=== PATIENT | male | born 1955 | race Two or more races ===

== ENCOUNTER 2025-04-11 12:03 | Inpatient (IN) | payer OTHER ==
[~2025-04-11] VITALS: Ht 188 cm; Wt 96.3 kg
[2025-04-11 12:29] VITALS: PULSE 57; RESP 9; O2SAT 100
--- NOTE | 2025-04-11 12:29 | ED.PDOC ---
HPI Comments This is a 69 year-old male who presents to the ED via EMS with a chief complaint of chest pain as of 1100 this morning. Pt [id number] he was outside doing yard work when chest pain spontaneously begun. Pt reports chest pain as intermittent, with no associated relieving factors. Per EMS, pt was diaphoretic and cool to the touch on scene. Pt was given 4MG Zofran and 324mg Aspirin en route. Per EMS, patients vitals read 110/60 and 98 systolic. Patient has no further complaints at this time and otherwise denies cough, palpitations, N/V/D, fever, chills, weakness, or slurred speech. Chief Complaint: Chest Pain Time Seen by MD: 12:16 Reviewed Notes: Car Varnisher Notes, Medications, Allergies Allergies: Coded Allergies: NO KNOWN ALLERGIES (Unverified , 04/11/25) Information Source: Patient, Emergency Med Personnel Mode of Arrival: EMS Severity: Moderate Timing: Minutes Duration: Since onset Prehospital treatment: None Radiation: No Radiation Associated Signs and Symptoms: Other (chest pain ) Past Medical History PAST MEDICAL HISTORY: Denies Surgical History: Denies all surgeries Family History Family History: Reviewed,noncontributory to illness, No family hx of Cancer, No family hx of DM, No family hx of Heart daniel, No family hx of HTN, No family hx ofKidney daniel, No family hx of Liver daneil, No family hx of Lung daniel, No family hx of Stroke Social History Smoker: Non-Smoker Alcohol: Denies ETOH Use Drugs: Denies Drug Use Lives In: Home Constitutional: denies: chills, diaphoresis, fatigue, fever, malaise, sweats, weakness, others EENTM: denies: blurred vision, double vision, ear bleeding, ear discharge, ear drainage, ear pain, ear ringing, eye pain, eye redness, hearing loss, mouth pain, mouth swelling, nasal discharge, nose bleeding, nose congestion, nose pain, photophobia, tearing, throat pain, throat swelling, voice changes, others Respiratory: denies: cough, hemoptysis, orthopnea, SOB at rest, shortness of breath, SOB with excertion, stridor, wheezing, others Cardiovascular: reports: chest pain; denies: dizzy spells, diaphoresis, Dyspnea on exertion, edema, irregular heart beat, left arm pain, lightheadedness, palpitations, PND, syncope, others Gastrointestinal: denies: abdomen distended, abdominal pain, blood streaked bowels, constipated, diarrhea, dysphagia, difficulty swallowing, hematemesis, melena, nausea, poor appetite, poor fluid intake, rectal bleeding, rectal pain, vomiting, others Genitourinary: denies: burning, dysuria, flank pain, frequency, hematuria, incontinence, penile discharge, penile sore, pain, testicle pain, testicle swelling, urgency, others Neurological: denies: dizziness, fainting, headache, left sided numbness, left sided weakness, numbness, paresthesia, pre-existing deficit, right sided numbness, right sided weakness, seizure, speech problems, tingling, tremors, weakness, others Musculoskeletal: denies: back pain, gout, joint pain, joint swelling, muscle pain, muscle stiffness, neck pain, others Integumetry: denies: bruises, change in color, change in hair/nails, dryness, laceration, lesions, lumps, rash, wounds, others Allergic/Immunocompromised: denies: Difficulty Healing, Frequent Infections, Hives, Itching, others Hematologic/Lymphatic: denies: anemia, blood clots, easy bleeding, easy bruising, swollen glands, others Endocrine: denies: excessive hunger, excessive sweating, excessive thirst, excessive urination, flushing, intolerance to cold, intolerance to heat, unexplained weight gain, unexplained weight loss, others Psychiatric: denies: anxiety, bipolar disorder, depression, hopeless, panic disorder, schizophrenia, sleepless, suicidal, others All Other Systems: Reviewed and Negative Physical Exam General Appearance: Moderate Distress HEENT: Normal ENT Inspection, Pharynx Normal, TMs Normal Neck: Full Range of Motion, Non-Tender, Normal, Normal Inspection Respiratory: Chest Non-Tender, Lungs Clear, No Accessory Muscle Use, No Respiratory Distress, Normal Breath Sounds Cardiovascular: No Edema, No JVD, No Murmur, No Gallop, Normal Peripheral Pulses, Regular Rate/Rhythm Breast Exam: Deferred Gastrointestinal: No Organomegaly, Non Tender, No Pulsatile Mass, Normal Bowel Sounds, Soft Genitalia: Deferred Pelvic: Deferred Rectal: Deferred Extremities: No calf tenderness, Normal inspection, Normal range of motion, No pedal edema Musculoskeletal : Apperance: Normal Neurologic: Alert, No Motor Deficits, No Sensory Deficits Cerebellar Function: NOT DONE Reflexes: NOT DONE Skin: Dry, Normal Color, Warm Peripheral Pulses: 3+ Radial (R), 3+ Radial (L) Lymphatic: No Adenopathy EKG EKG : Pulse Rate (adult): 48 [place]: Normal Cardiac Rhythm: SB Block: None Hypertrophy: None ST: Normal Was a procedure done? Was a procedure done?: No CP Differential Dx Differential Diagnosis: A-fib, A-Flutter, Angina, Anxiety / Panic Attack, Atrial Dysrhythmia, Electrolyte Disorder, V-Tach Differential Diagnosis: HTN Essential Differential Diagnosis: Angina, Chest Wall Pain X-Ray, Labs, Meds, VS Vital Signs Date Time Temp Pulse Resp B/P (MAP) Pulse Ox O2 Delivery O2 Flow Rate FiO2 04/11/25 12:41 57 18 107/59 04/11/25 12:29 57 9 100 Room Air* 0 21 04/11/25 12:29 57 10 107/59 (75) 100 04/11/25 12:29 70 04/11/25 12:07 57 04/11/25 12:03 97.7 56 20 110/60 95 97.7 Lab Test 04/11/25 13:00 04/11/25 12:20 Range/Units Troponin I High Sensitivity 5 3 L </=54 ng/L White Blood Count 3.5 L 4.4-10.8 10^3/uL Red Blood Count 4.02 L 4.5-5.90 10^6/uL Hemoglobin 12.2 L 13.5-17.5 g/dL Hematocrit 35.4 L 41.0-53.0 % Mean Corpuscular Volume 88.1 80.0-100.0 fL Mean Corpuscular Hemoglobin 30.3 28.0-32.0 pg Mean Corpuscular Hemoglobin Concent 34.4 32.0-36.0 g/dL Red Cell Distribution Width 17.5 H 11.8-14.3 % Platelet Count 146 140-450 10^3/uL Mean Platelet Volume 7.8 6.9-10.8 fL Neutrophils (%) (Auto) 52.6 37.0-80.0 % Lymphocytes (%) (Auto) 34.4 10.0-50.0 % Monocytes (%) (Auto) 10.5 0.0-12.0 % Eosinophils (%) (Auto) 2.2 0.0-7.0 % Basophils (%) (Auto) 0.3 0.0-2.0 % Neutrophils # (Auto) 1.9 1.6-8.6 10 ^3/uL Lymphocytes # (Auto) 1.2 0.4-5.4 10 ^3/uL Monocytes # (Auto) 0.4 0-1.3 10 ^3/uL Eosinophils # (Auto) 0.1 0-0.8 10 ^3/uL Basophils # (Auto) 0 0-0.2 10 ^3/uL Nucleated Red Blood Cells 0.0 % Sodium Level 140 136-145 mmol/L Potassium Level 3.9 3.5-5.1 mmol/L Chloride Level 107 98-107 mmol/L Carbon Dioxide Level 23 20-31 mmol/L Anion Gap 10 5-15 Blood Urea Nitrogen 11 9-23 mg/dL Creatinine 1.36 H 0.700-1.30 mg/dL Glomerular Filtration Rate Calc 56 >90 mL/min BUN/Creatinine Ratio 8.1 L 10.0-20.0 Serum Glucose 151 H 74-106 mg/dL Calcium Level 9.1 8.7-10.4 mg/dL Current Medications Medications (Trade) Dose Ordered Sig/Linda Route Start Time Stop Time Status Last Admin Aspirin 325 mg ONCE ONCE PO 04/11/25 12:30 04/11/25 12:31 DC 04/11/25 12:42 Morphine Sulfate 4 mg ONCE ONCE IV 04/11/25 12:30 04/11/25 12:31 DC 04/11/25 12:41 Ondansetron HCl (Zofran) 4 mg ONCE ONCE IV 04/11/25 12:30 04/11/25 12:31 DC 04/11/25 12:42 [place] [id number] Ph: [phone] DIAGNOSTIC IMAGING Diagnostic Imaging Report : [id number] Signed PATIENT: NATACHA RUSHING ACCT: [id number] UNIT: [id number] : 1955 LOC: ER ROOM / BED: / AGE / SEX: 69 / M ADM STATUS: REG ER SERVICE 1222 ORDERING PHYSICIAN: TILA WHEAT MD PROCEDURE(s): CXRP - CHEST PORTABLE REASON: sob ORDER NUMBER(s): [id number], ACCESSION NUMBER(s): [id number] EXAM: XY CHEST PORTABLE HISTORY: sob TECHNIQUE: 1 view of the chest COMPARISON: None FINDINGS/IMPRESSION: LUNGS: No pleural effusion, consolidation, or pneumothorax MEDIASTINUM: Unremarkable BONES: No acute osseous abnormality OTHER: None Patient alert. Complaining of chest pain. Vitals stable. Answering questions. Continues to have chest pain. Was given aspirin. Was given nitro. Was given morphine. Was given Zofran. EKG reviewed does not show any acute changes. Echocardiogram. Cardiology consultation. Unstable for transfer. Continue monitoring. Approved inpatient admission [id number]. Images Reviewed?: Images reviewed and evaluated by me Time of 1ST Reevaluation: 12:57 Reevaluation 1ST: Unchanged Patient Education/Counseling: Diagnosis, Treatment Family Education/Counseling: No Family Present Medical Screening: No EMC Exist At This Time SEPSIS Sepsis Screen Date sepsis recognized/suspect: Apr 11, 2025 Time Sepsis recognized/suspect: 1201 Recent Procedure: No On Antibiotic Therapy: No Respiratory Rate >20: No Heart Rate >90: No Temp<36 C (96.8 F) or >38.3 C: No SBP <90 or MAP <65 mmHG: No New Acute Mental Status Change: No Is the patient on CPAP, BIPAP,: No Physician Orders Chest Portable (04/11/25 12:22) Urinalysis (04/11/25 12:22) Troponin-I Hs (04/11/25 15:22) Electrocardigram (04/11/25 12:46) Electrocardigram (04/11/25 13:46) Electrocardigram (04/11/25 15:46) Vital Signs Date Time Temp Pulse Resp B/P (MAP) Pulse Ox O2 Delivery O2 Flow Rate FiO2 04/11/25 12:41 57 18 107/59 04/11/25 12:29 57 9 100 Room Air* 0 21 04/11/25 12:29 57 10 107/59 (75) 100 04/11/25 12:29 70 04/11/25 12:07 57 04/11/25 12:03 97.7 56 20 110/60 95 97.7 Laboratory Tests Test 04/11/25 12:20 White Blood Count 3.5 10^3/uL (4.4-10.8) L Medications Medications Dose Ordered Sig/Linda Route Start Time Stop Time Status Last Admin Dose Admin Aspirin 325 mg ONCE ONCE PO 04/11/25 12:30 04/11/25 12:31 DC 04/11/25 12:42 Morphine Sulfate 4 mg ONCE ONCE IV 04/11/25 12:30 04/11/25 12:31 DC 04/11/25 12:41 Ondansetron HCl 4 mg ONCE ONCE IV 04/11/25 12:30 04/11/25 12:31 DC 04/11/25 12:42 Departure 1 Departure Time of Disposition: 12:30 Impression: Primary Impression: Chest pain of unknown etiology Disposition: ADMITTED INPATIENT Admit to: Med Surg Condition: Guarded Critical Care Note Critical Care Time?: No Stability Stability form required: No Heart Score Heart Score: Heart Score Response (Comments) Value History Slightly Suspicious 0 EKG Normal 0 Age >65 2 Risk Factors No known risk factors 0 Troponin Normal limit 0 Total 2 I personally scribed for TILA WHEAT MD ([email or web address]) on 04/11/25 at 12:29. Electronically submitted by Leticia Tavarez ([employer] I personally scribed for TILA WHEAT MD ([email or web address]) on 04/11/25 at 13:47. Electronically submitted by Leticia Tavarez ([employer] I personally scribed for TILA WHEAT MD ([email or web address]) on 04/11/25 at 13:56. Electronically submitted by Leticia Tavarez ([employer] TILA WHEAT MD Apr 11, 2025 12:29
[2025-04-11] MEDS: MORPHINE SULFATE 4 MG/ML SYR/VIAL IV ONE (12:41)
[2025-04-11] MEDS: ONDANSETRON HCL 4 MG/2 ML VIAL IV ONE ×2 (12:42→18:54)
[2025-04-11 12:44] LABS: Chloride 107 mmol/L (98-107); Potassium 3.9 mmol/L (3.5-5.1); Sodium 140 mmol/L (136-145)
[2025-04-11 12:45] LABS: Anion Gap 10 (5-15); Calcium 9.1 mg/dL (8.7-10.4); Carbon Dioxide 23 mmol/L (20-31)
[2025-04-11 12:50] LABS: BUN/Creatinine Ratio 8.1 (10.0-20.0); Blood Urea Nitrogen 11 mg/dL (9-23)
[2025-04-11 12:51] LABS: Hematocrit 35.4 % (41.0-53.0); Hemoglobin 12.2 g/dL (13.5-17.5); Mean Corpuscular Hemoglobin 30.3 pg (28.0-32.0); Mean Corpuscular Volume 88.1 fL (80.0-100.0); Nucleated Red Blood Cells % 0.0 %
--- NOTE | 2025-04-11 13:19 | DVH ---
EXAM: XY CHEST PORTABLE HISTORY: sob TECHNIQUE: 1 view of the chest COMPARISON: None FINDINGS/IMPRESSION: LUNGS: No pleural effusion, consolidation, or pneumothorax MEDIASTINUM: Unremarkable BONES: No acute osseous abnormality OTHER: None
[2025-04-11 13:21] LABS: Glucose 151 mg/dL (74-106)
--- NOTE | 2025-04-11 15:17 | ECG ---
[facility] Test Date: 2025-04-11 Test Time: 12:05:26 Pat Name: NATACHA SAN Department: Room: 0217T Gender: M Manager Of Tax: SHANTE : 1955 Requested By: TILA WHEAT Order Number: [id number] Reading MD: Aaron Yadav Measurements Intervals [place] Rate: 57 P: 83 MO: 180 QRS: 86 QRSD: 103 T: 92 QT: 425 QTc: 414 Interpretive Statements Sinus rhythm Consider right ventricular hypertrophy Nonspecific T abnormalities, lateral leads ST elevation, consider inferior injury Electronically Signed On 04-15-2025 9:30:54 PDT by Aaron Yadav Please click the below link to view image of tracing.
--- NOTE | 2025-04-11 15:18 | ECG ---
[facility] Test Date: 2025-04-11 Test Time: 15:00:38 Pat Name: NATACHA SAN Department: Room: 0217T Gender: M Inspector Salvage: SHANTE : 1955 Requested By: TILA WHEAT Order Number: [id number] Reading MD: Aaron Yadav Measurements Intervals [place] Rate: 48 P: 76 [place]: 176 QRS: 69 QRSD: 106 T: 102 QT: 467 QTc: 418 Interpretive Statements Sinus bradycardia Consider right ventricular hypertrophy Nonspecific T abnormalities, lateral leads ST elevation, consider inferior injury Electronically Signed On 04-15-2025 9:32:49 PDT by Aaron Yadav Please click the below link to view image of tracing.
[2025-04-11] MEDS: NITROGLYCERIN 0.4 MG SL TAB SL ONE (15:30)
[2025-04-11] MEDS: SODIUM CHLORIDE 0.9% 1,000 ML IV ONE (17:34)
[2025-04-11] MEDS: ONDANSETRON HCL 4 MG/2 ML VIAL ONE (18:54)
[2025-04-11] MEDS ORDERED: ACETAMINOPHEN 325 MG TAB PO PRN (19:45)
[2025-04-11] MEDS ORDERED: DOCUSATE SOD 100 MG CAP PO PRN (19:45)
[2025-04-11 19:56] VITALS: PULSE 51; RESP 11; O2SAT 99
[2025-04-11] MEDS: SODIUM CHLOR 0.9% PF (SALINE LOCK) 10ML VIAL/SYR IV SCH (21:21)
--- NOTE | 2025-04-11 21:42 | DVHHP2 ---
History of Present Illness Reason for Visit: Chest pain of unknown etiology History of Present Illness The patient is a 69-year-old male who denies past medical history presented to [facility] ED with complaint of chest pain. Patient [id number] he was outside doing yard work when chest pain spontaneously begun. Patient states chest pain as intermittent, diaphoretic, with no associated relieving factors. Patient was seen and evaluated in the ED, laboratory data shows WBC 3.5, hemoglobin 12.2, hematocrit 35.4, platelets 146, sodium 140, potassium 3.9, BUN 11, creatinine 1.36, glucose 151, hemoglobin A1c 5.6, calcium 9.1, troponin 97, blood pressure 90/52, heart rate 45, temperature 98.2 F, O2 saturation 99% room air. Chest x-ray shows no acute osseous abnormality. Please see medication orders section in the computer. On my assessment, patient denied chest pain at this moment, no headache, no dizziness, no shortness of breaths, no diarrhea, no nausea, no vomiting, no fever, no chills. Patient was admitted for further evaluation and medical management. Past Medical History Denies past medical history Past Surgical History Denies all surgeries Family History Reviewed, noncontributory to the management of this case. Past Social History The patient lives at home, denies smoking, alcohol or illicit drugs abuse. Review of Systems Constitutional: No: Fever, Chills, Sweats, Weakness, Malaise, Other Eyes: No: Pain, Vision change, Conjunctivae inflammation, Eyelid inflammation, Other, Redness ENT: No: Ear pain, Ear discharge, Nose pain, Nose discharge, Nose congestion, Mouth pain, Mouth swelling, Throat pain, Throat swelling, Other Respiratory: No: Cough, Dry, Shortness of breath, SOB with excertion, Wheezing, Hemoptysis, Pleuritic Pain, Sputum, Wheezing, Other Cardiovascular: Chest Pain, Other (Bradycardia); No: Palpitations, Orthopnea, Paroxysmal Noc. Dyspnea, Edema, Lt Headedness Gastrointestinal: No: Nausea, Vomiting, Abdominal Pain, Diarrhea, Constipation, Melena, Hematochezia, Other Genitourinary: No Dysuria, No Frequency, No Incontinence, No Hematuria, No Retention, No Other Musculoskeletal: No: other, neck pain, shoulder pain, arm pain, back pain, hand pain, leg pain, foot pain Skin: No: Rash, Lesions, Jaundice, Bruising, Other Neurological: No: Weakness, Numbness, Incoordination, Change in speech, Confusion, Seizures, Other Allergies: Coded Allergies: NO KNOWN ALLERGIES (Unverified , 04/11/25) Medications Current Medications Medications Dose Ordered Sig/Linda Route Start Time Stop Time Status Last Admin Dose Admin Aspirin 81 mg DAILY PO 04/12/25 10:00 Sodium Chloride 10 ml Q8HR IV 04/11/25 22:00 04/11/25 21:21 10 ML Acetaminophen/ Hydrocodone Bitart 1 tab Q4HP PRN PO 04/11/25 19:45 Ondansetron HCl 4 mg Q4HP PRN IV 04/11/25 19:45 Docusate Sodium 100 mg BIDPRN PRN PO 04/11/25 19:45 Acetaminophen 650 mg Q6HP PRN PO 04/11/25 19:45 Exam Vital Signs Vital Signs Date Time Temp Pulse Resp B/P (MAP) Pulse Ox O2 Delivery O2 Flow Rate FiO2 04/11/25 19:56 98.1 51 11 111/49 (69) 99 98.1 04/11/25 19:56 Room Air* 0 21 General Appearance: Alert, Oriented X3, Cooperative, No acute distress HEENT: Atraumatic, PERRLA, EOMI, Mucous membr. moist/pink Respiratory: Normal air movement Cardiovascular: Normal S1, Normal S2, No murmurs, Other (Irregular rate bradycardia) Abdominal: Normal bowel sounds, Soft, No tenderness, No hepatospenomegaly, No masses Extremities: No clubbing, No cyanosis, No edema, Normal pulses, No tenderness/swelling Skin: No rashes, No significant lesion Neuro: Normal speech, Normal tone, Sensation intact, Cranial nerves 3-12 NL, Reflexes 2+, Other (Generalized weakness) Psych/Mental Status: Mental status NL, Mood NL Labs/Xrays Labs Test 04/11/25 15:09 04/11/25 12:20 Range/Units Troponin I High Sensitivity 97 *H </=54 ng/L White Blood Count 3.5 L 4.4-10.8 10^3/uL Red Blood Count 4.02 L 4.5-5.90 10^6/uL Hemoglobin 12.2 L 13.5-17.5 g/dL Hematocrit 35.4 L 41.0-53.0 % Mean Corpuscular Volume 88.1 80.0-100.0 fL Mean Corpuscular Hemoglobin 30.3 28.0-32.0 pg Mean Corpuscular Hemoglobin Concent 34.4 32.0-36.0 g/dL Red Cell Distribution Width 17.5 H 11.8-14.3 % Platelet Count 146 140-450 10^3/uL Mean Platelet Volume 7.8 6.9-10.8 fL Neutrophils (%) (Auto) 52.6 37.0-80.0 % Lymphocytes (%) (Auto) 34.4 10.0-50.0 % Monocytes (%) (Auto) 10.5 0.0-12.0 % Eosinophils (%) (Auto) 2.2 0.0-7.0 % Basophils (%) (Auto) 0.3 0.0-2.0 % Neutrophils # (Auto) 1.9 1.6-8.6 10 ^3/uL Lymphocytes # (Auto) 1.2 0.4-5.4 10 ^3/uL Monocytes # (Auto) 0.4 0-1.3 10 ^3/uL Eosinophils # (Auto) 0.1 0-0.8 10 ^3/uL Basophils # (Auto) 0 0-0.2 10 ^3/uL Nucleated Red Blood Cells 0.0 % Sodium Level 140 136-145 mmol/L Potassium Level 3.9 3.5-5.1 mmol/L Chloride Level 107 98-107 mmol/L Carbon Dioxide Level 23 20-31 mmol/L Anion Gap 10 5-15 Blood Urea Nitrogen 11 9-23 mg/dL Creatinine 1.36 H 0.700-1.30 mg/dL Glomerular Filtration Rate Calc 56 >90 mL/min BUN/Creatinine Ratio 8.1 L 10.0-20.0 Serum Glucose 151 H 74-106 mg/dL Hemoglobin A1c 5.6 <5.7 % A1C Calcium Level 9.1 8.7-10.4 mg/dL PATIENT: NATACHA RUSHING ACCT: [id number] UNIT: [id number] : 1955 LOC: ER ROOM / BED: / AGE / SEX: 69 / M ADM STATUS: REG ER SERVICE 1222 ORDERING PHYSICIAN: TILA WHEAT MD PROCEDURE(s): CXRP - CHEST PORTABLE REASON: sob ORDER NUMBER(s): [id number], ACCESSION NUMBER(s): [id number] EXAM: XY CHEST PORTABLE HISTORY: sob TECHNIQUE: 1 view of the chest COMPARISON: None FINDINGS/IMPRESSION: LUNGS: No pleural effusion, consolidation, or pneumothorax MEDIASTINUM: Unremarkable BONES: No acute osseous abnormality OTHER: None SEPSIS Sepsis Screen Date sepsis recognized/suspect: Apr 11, 2025 Time Sepsis recognized/suspect: 2000 Recent Procedure: No On Antibiotic Therapy: No Respiratory Rate >20: No Heart Rate >90: No Temp<36 C (96.8 F) or >38.3 C: No SBP <90 or MAP <65 mmHG: No New Acute Mental Status Change: No Is the patient on CPAP, BIPAP,: No Physician Orders * Cardiology Consult (04/11/25 16:27) Aspirin Tablet (04/12/25 10:00) Allergies (04/11/25 19:38) Code Status (04/11/25 19:38) Sodium Chloride Lock (Saline Lock Ns) (04/11/25 22:00) Oxygen Per Hour (04/11/25 19:38) Hydrocodone-Acet 5/325mg Tab (Bruce 5/32 (04/11/25 19:45) Ondansetron Hcl (Zofran) (04/11/25 19:45) Docusate Sodium Capsule (Colace Capsule) (04/11/25 19:45) Complete Blood Count (04/12/25 04:00) Comprehensive Metabolic Panel (04/12/25 04:00) Cardiac Diet-2gna,Lofat,Lochol (04/12/25 Breakfast) Condition: Serious (04/11/25 19:38) Acetaminophen Tablet (Tylenol Tablet) (04/11/25 19:45) Bedrest With Bathroom Privileg (04/11/25 19:38) Maintain Bed Rest (04/11/25 19:38) Sequential Compression Device (04/11/25 ) Admit (04/11/25 21:41) Nitroglycerin Sublingual (Ntrostat Subli (04/11/25 21:45) Morphine Sulfate Injection (04/11/25 21:45) Stat Ekg For Chest Pain (04/11/25 21:41) Notify Md Of Changes From Base (04/11/25 21:41) Pigment Furnace Tender For 24 Hours (04/11/25 21:41) Emergency Dysrhythmia Protocol (04/11/25 21:41) Rhythm Strips Once Every Shift (04/11/25 21:41) Oxygen By Nasal Cannula (04/11/25 21:41) Vital Signs Date Time Temp Pulse Resp B/P (MAP) Pulse Ox O2 Delivery O2 Flow Rate FiO2 04/11/25 19:56 98.1 51 11 111/49 (69) 99 98.1 04/11/25 19:56 51 11 99 Room Air* 0 21 04/11/25 17:31 91/51 04/11/25 16:31 106/75 04/11/25 16:00 45 8 103/53 (70) 100 04/11/25 15:03 48 04/11/25 14:00 98.2 45 7 99/56 (70) 100 98.2 04/11/25 14:00 45 18 99/56 04/11/25 13:47 48 Laboratory Tests Test 04/11/25 12:20 White Blood Count 3.5 10^3/uL (4.4-10.8) L Medications Medications Dose Ordered Sig/Linda Route Start Time Stop Time Status Last Admin Dose Admin Aspirin 325 mg ONCE ONCE PO 04/11/25 12:30 04/11/25 12:31 DC 04/11/25 12:42 325 MG Morphine Sulfate 4 mg ONCE ONCE IV 04/11/25 12:30 04/11/25 12:31 DC 04/11/25 12:41 4 MG Nitroglycerin 0.4 mg ONCE ONCE SL 04/11/25 12:30 04/11/25 12:31 DC 04/11/25 16:31 0.4 MG Ondansetron HCl 4 mg ONCE ONCE IV 04/11/25 12:30 04/11/25 12:31 DC 04/11/25 12:42 4 MG Ondansetron HCl 4 mg ONCE ONCE IV 04/11/25 18:45 04/11/25 18:46 DC 04/11/25 18:54 4 MG Sodium Chloride 10 ml Q8HR IV 04/11/25 22:00 04/11/25 21:21 10 ML Sodium Chloride 1,000 ml @ 1,000 mls/hr Q1H ONCE IV 04/11/25 17:15 04/11/25 18:14 DC 04/11/25 17:34 1,000 MLS/HR Assessment/Plan Assessment/Plan Chest pain of unknown etiology Bradycardia Elevated troponin Hyperglycemia Generalized weakness Plan 1. Admit to telemetry unit 2. Breathing treatment 3. Pain control management 4. Management of fluids and electrolytes 5. Consultation for Cardiology 6. Diagnostic tests chest x-ray 7. DVT prophylaxis-on aspirin 8. Repeat labs CBC, CMP in a.m. 9. Continue with current medical management 10. Treatment plan discussed with patient and RN. Patient verbalized understanding. Plan discussed with: Patient, Other (RN) My Orders Orders - SLY KARIMI DNP Procedure Category Date Status Time Aspirin Tablet PHA 04/12/25 In Process 10:00 Allergies MATTHEW 04/11/25 In Process 19:38 Code Status CODE 04/11/25 Transmitted 19:38 Sodium Chloride Lock PHA 04/11/25 In Process (Saline Lock Ns) 22:00 Oxygen Per Hour RT 04/11/25 Transmitted 19:38 Hydrocodone-Acet PHA 04/11/25 In Process 5/325mg Tab (Bruce 19:45 Ondansetron Hcl PHA 04/11/25 In Process (Zofran) 19:45 Docusate Sodium PHA 04/11/25 In Process Capsule (Colace 19:45 Complete Blood Count LAB 04/12/25 Verified 04:00 Comprehensive LAB 04/12/25 Verified Metabolic Panel 04:00 Cardiac DIET 04/12/25 Transmitted Diet-2gna,Lofat,Lochol Breakfast Condition: Serious MATTHEW 04/11/25 In Process 19:38 Acetaminophen Tablet PHA 04/11/25 In Process (Tylenol Tablet) 19:45 Bedrest With Bathroom MATTHEW 04/11/25 In Process Privileg 19:38 Maintain Bed Rest MATTHEW 04/11/25 In Process 19:38 Sequential MATTHEW 04/11/25 In Process Compression Device Admit ADMIT 04/11/25 Verified 21:41 Nitroglycerin [facility] 04/11/25 Verified Sublingual (Ntrostat 21:45 Morphine Sulfate PHA 04/11/25 Verified Injection 21:45 Stat Ekg For Chest [facility] 04/11/25 Verified Pain 21:41 Notify Of Changes [facility] 04/11/25 Verified From Base 21:41 Pigment Furnace Tender For [facility] 04/11/25 Verified 24 Hours 21:41 Emergency Dysrhythmia MATTHEW 04/11/25 Verified Protocol 21:41 Rhythm Strips Once [facility] 04/11/25 Verified Every Shift 21:41 Oxygen By Nasal RT 04/11/25 Verified Cannula 21:41 Problem List: (1) Chest pain of unknown etiology (2) Bradycardia (3) Elevated troponin (4) Hyperglycemia (5) Generalized weakness Date of Service: Apr 11, 2025 Billing Provider: SLY KARIMI DNP Common Visit Codes: [id number] INP/OBS CARE (HIGH) SLY KARIMI DNP Apr 11, 2025 21:42
[2025-04-11] MEDS ORDERED: MORPHINE SULFATE INJ 2 MG/ml SYRG IV PRN (21:45)
[2025-04-11] MEDS ORDERED: NITROGLYCERIN 0.4 MG SL TAB SL PRN (21:45)
[2025-04-12] VITALS (23 sets, daily range): BP systolic 91–110; BP diastolic 32–59; PULSE 41–70; RESP 12–18; TEMP 97.6–98.9; O2SAT 97–100
[2025-04-12 04:03] LABS: Urine Protein, UAD TRACE (Negative)
[2025-04-12 07:25] LABS: Hematocrit 36.0 % (41.0-53.0); Hemoglobin 12.4 g/dL (13.5-17.5); Mean Corpuscular Hemoglobin 30.6 pg (28.0-32.0); Mean Corpuscular Volume 89.1 fL (80.0-100.0); Nucleated Red Blood Cells % 0.0 %
[2025-04-12 07:52] LABS: Albumin 4.1 g/dL (3.2-4.8); Alkaline Phosphatase 74 U/L (46-116); Anion Gap 8 (5-15); BUN/Creatinine Ratio 9.2 (10.0-20.0); Blood Urea Nitrogen 11 mg/dL (9-23); Calcium 8.9 mg/dL (8.7-10.4); Carbon Dioxide 25 mmol/L (20-31); Chloride 106 mmol/L (98-107); Potassium 4.4 mmol/L (3.5-5.1); Sodium 139 mmol/L (136-145); Total Protein 6.4 g/dL (5.7-8.2)
[2025-04-12 07:53] LABS: Bilirubin, Total 0.8 mg/dL (0.2-1.0)
[2025-04-12 08:00] LABS: Alanine Aminotransferase 44 U/L (7-40); Glucose 124 mg/dL (74-106)
[2025-04-12 08:05] LABS: Magnesium 2.0 mg/dL (1.6-2.6)
[2025-04-12 08:06] LABS: Cholesterol 177.0 mg/dL (< 200); Triglycerides 164.0 mg/dL (< 150)
[2025-04-12 08:07] LABS: HDL Cholesterol 31.0 mg/dL (40-59)
[2025-04-12 08:20] LABS: Amphetamine Screen, Urine Neg (NEGATIVE); Barbiturate Scree,Urine Neg (NEGATIVE); Benzodiazephine Screen, Urine Neg (NEGATIVE); Cannabinoid Screen, Urine Neg (NEGATIVE); Cocaine Screen, Urine Neg (NEGATIVE); Opiate Scree,Urine Neg (NEGATIVE); Phencyclidine Screen, Urine Neg (NEGATIVE)
[2025-04-12] MEDS: HYDROcodone-ACET 5/325MG TAB PO PRN (10:16)
--- NOTE | 2025-04-12 11:47 | DVHINCON2 ---
Date Seen: Apr 12, 2025 Referring Physician MD Jolene Reason for Consultation NSTEMI History of Present Illness This is a 69-year-old male patient who presents to the emergency room with chief complaint of chest pain. The patient reports that the chest pain began shortly after he was working on his yard digging a hole at around 11am yesterday. He describes the pain as unprovoked, constant, tight in nature, substernal with radiation to his bilateral arms. Associated symptoms include shortness of breath and diaphoresis. He denies any aggravating or alleviating factors. EMS was called and the patient was brought to the emergency room for further evaluation. No twelve lead electrocardiogram from the emergency room found in patient's hard chart. A new twelve lead electrocardiogram was ordered at time of assessment and reveals sinus bradycardia with ST segment changes to inferior leads with reciprocal changes to lateral leads. Initial troponin level of 3ng/L with up trend and current peak level at 97ng/L. No further troponin levels were drawn in ER. At the time of assessment, the patient is still complaining of constant chest pain. A new set of troponin levels were ordered at time of assessment. Significant past medical history includes dyslipidemia, GERD, BPH, psoriatic arthritis, and tobacco use. Of note, the patient has a significant cardiac history within his family with his father requiring a quadruple vessel CABG at age 59. Past Medical History Past medical history reviewed. No other significant than mentioned above. Past Surgical History Left knee replacement Cholecystectomy Family History: Cardiovascular disease G8 MOTHER G8 FATHER Family History Family history reviewed. Social History Patient has a 10 pack-year history, reports sporadic tobacco use Patient reports social alcohol use Denies illicit drugs Allergies: Coded Allergies: NO KNOWN ALLERGIES (Unverified , 04/11/25) Home Meds Unable to Obtain Active Prescriptions or Reported Meds Home Meds Home medications reviewed. Current Medications Current Medications Medications (Trade) Dose Ordered Sig/Linda Route PRN Reason Start Time Stop Time Status Last Admin Aspirin 81 mg DAILY PO 04/12/25 10:00 04/12/25 10:16 Sodium Chloride (Saline Lock Ns) 10 ml Q8HR IV 04/11/25 22:00 04/12/25 06:00 Acetaminophen/ Hydrocodone Bitart ([place] 5/325MG Tab) 1 tab Q4HP PRN PO MODERATE PAIN (4-6 PAIN SCALE) 04/11/25 19:45 04/12/25 10:16 Ondansetron HCl (Zofran) 4 mg Q4HP PRN IV NAUSEA / VOMITING 04/11/25 19:45 Docusate Sodium (Colace Capsule) 100 mg BIDPRN PRN PO FOR CONSTIPATION 04/11/25 19:45 Acetaminophen (Tylenol Tablet) 650 mg Q6HP PRN PO PAIN SCALE 1-3 OR TEMP>100.4 04/11/25 19:45 Nitroglycerin (Ntrostat Sublingual) 0.4 mg Q5MINP PRN SL FOR CHEST PAIN 04/11/25 21:45 Morphine Sulfate 2 mg Q30M PRN IV FOR CHEST PAIN 04/11/25 21:45 Calcium Carbonate (Tums) 500 mg Q8HP PRN PO FOR STOMACH DISTRESS 04/12/25 06:00 Review of Systems Constitutional: No symptom reported Ears, Nose, & Throat: No symptom reported Eyes: No symptom reported Neurological: No symptoms reported Pulmonary/Respiratory: Shortness of breath Cardiovascular: Chest pain Gastrointestinal: No symptom reported Genitourinary: No symptom reported Musculoskeletal: No symptom reported Skin: No symptom reported Psychiatric: No symptom reported Endocrine: No symptom reported Hematologic/Lymphatic: No symptom reported Vital Signs Vital Signs Date Time Temp Pulse Resp B/P (MAP) Pulse Ox O2 Delivery O2 Flow Rate FiO2 04/12/25 09:00 97.6 70 18 97/47 (64) 100 97.6 04/12/25 00:52 Room Air* 0 21 Physical Exam General Appearance: Cooperative. Well-developed. Well-nourished. No acute distress. Pulmonary/Respiratory: Clear, bilateral breaths sounds. Cardiovascular/Chest: Regular rate and rhythm. Peripheral Pulses: 2+ Radial (R). 2+ Radial (L). 2+ Pedal (R). 2+ Pedal (L) Abdominal Exam: Normal bowel sounds. Ankle Exam: Negative ankle edema Lower extremities: Negative lower extremity edema Neuro/Mental Status: A/OX4, coherent. Thoughts/Psych: Normal thought pattern. Appropriate mood and affect. Good judgment and insight. Appearance: No acute distress. Skin Exam: Normal inspection. Normal color. Warm and dry. Labs/Diagnostic Data Labs Test 04/12/25 06:23 04/12/25 03:00 04/11/25 15:09 04/11/25 12:20 Range/Units White Blood Count 8.9 # 4.4-10.8 10^3/uL Red Blood Count 4.04 L 4.5-5.90 10^6/uL Hemoglobin 12.4 L 13.5-17.5 g/dL Hematocrit 36.0 L 41.0-53.0 % Mean Corpuscular Volume 89.1 80.0-100.0 fL Mean Corpuscular Hemoglobin 30.6 28.0-32.0 pg Mean Corpuscular Hemoglobin Concent 34.3 32.0-36.0 g/dL Red Cell Distribution Width 17.5 H 11.8-14.3 % Platelet Count 155 140-450 10^3/uL Mean Platelet Volume 8.1 6.9-10.8 fL Neutrophils (%) (Auto) 82.3 H 37.0-80.0 % Lymphocytes (%) (Auto) 9.7 L 10.0-50.0 % Monocytes (%) (Auto) 7.5 0.0-12.0 % Eosinophils (%) (Auto) 0.4 0.0-7.0 % Basophils (%) (Auto) 0.1 0.0-2.0 % Neutrophils # (Auto) 7.3 1.6-8.6 10 ^3/uL Lymphocytes # (Auto) 0.9 0.4-5.4 10 ^3/uL Monocytes # (Auto) 0.7 0-1.3 10 ^3/uL Eosinophils # (Auto) 0 0-0.8 10 ^3/uL Basophils # (Auto) 0 0-0.2 10 ^3/uL Nucleated Red Blood Cells 0.0 % Sodium Level 139 136-145 mmol/L Potassium Level 4.4 3.5-5.1 mmol/L Chloride Level 106 98-107 mmol/L Carbon Dioxide Level 25 20-31 mmol/L Anion Gap 8 5-15 Blood Urea Nitrogen 11 9-23 mg/dL Creatinine 1.19 0.700-1.30 mg/dL Glomerular Filtration Rate Calc 66 >90 mL/min BUN/Creatinine Ratio 9.2 L 10.0-20.0 Serum Glucose 124 H 74-106 mg/dL Calcium Level 8.9 8.7-10.4 mg/dL Magnesium Level 2.0 1.6-2.6 mg/dL Total Bilirubin 0.8 0.2-1.0 mg/dL Aspartate Amino Transferase (AST) 151 H 13-40 U/L Alanine Aminotransferase (ALT) 44 H 7-40 U/L Alkaline Phosphatase 74 46-116 U/L Total Protein 6.4 5.7-8.2 g/dL Albumin 4.1 3.2-4.8 g/dL Triglycerides Level 164 H < 150 mg/dL Cholesterol Level 177 < 200 mg/dL LDL Cholesterol 130 H < 100 mg/dL HDL Cholesterol 31 L 40-59 mg/dL Thyroid Stimulating Hormone (TSH) 1.94 0.55-4.78 uIU/mL Urine Color Yellow Yellow Urine Clarity Clear Clear Urine pH 6.0 5.0-9.0 Urine Specific [place] 1.037 H 1.001-1.035 Urine Protein Trace H Negative Urine Ketones Trace Negative Urine Blood Negative Negative /uL Urine Nitrite Negative Negative Urine Bilirubin Negative Negative Urine Urobilinogen 3 H Negative mg/dL Urine Leukocyte Esterase Negative Negative /uL Urine RBC 1 0 - 3 /hpf Urine Microscopic WBC 3 0-3 /HPF Urine Squamous Epithelial Cells Few <5 /hpf Urine Bacteria Few H None Seen /hpf Urine Hyaline Casts Few 0 - 2 /lpf Urine Mucus Few None Seen Urine Glucose Normal Normal mg/dL Urine Opiates Screen Neg NEGATIVE Urine Fentanyl Screen Neg NEGATIVE Urine Barbiturates Screen Neg NEGATIVE Urine Phencyclidine Screen Neg NEGATIVE Urine Amphetamines Screen Neg NEGATIVE Urine Benzodiazepines Screen Neg NEGATIVE Urine Cocaine Screen Neg NEGATIVE Urine Cannabinoids Screen Neg NEGATIVE Troponin I High Sensitivity 97 *H </=54 ng/L Hemoglobin A1c 5.6 <5.7 % A1C Assessment Evolved inferior wall myocardial infarction, rule out coronary artery disease Rule out structural heart disease Dyslipidemia Benign prostatic hyperplasia Psoriatic arthritis Family history of ischemic heart disease Tobacco use Plan/Recommendation We will continue with the following plan/recommendations (Dr. Yadav): * Transthoracic echocardiogram to evaluate cardiac function * Chest pain protocol * GRACE score: 4 points * HEART score: 6 points * Single antiplatelet therapy and lipid-lowering agent * New set of troponin level * Close Cardiac surveillance * Coronary angiogram Case discussed with . Previous twelve lead electrocardiograms reviewed from [facility] and show inferior wall ST segment elevation. This is an Evolved STEMI. We will recommend for the patient to undergo a coronary angiogram with left heart catheterization.The procedure was discussed with the patient in full detail including risks and benefits. Risks include but are not limited to bleeding, contrast-induced nephropathy, coronary dissection, stroke, and even . The patient understands and is agreeable to undergo the procedure. We will schedule the patient at soonest availability on 04/12/2025. Thank you for allowing us to care for this patient. Please call with any questions or concerns. Critical care time spent: 44 minutes This medical document was created using an electronic medical record system with voice recognition software and computerized dictation system. Although this document has been carefully reviewed, there might still be some phonetic and typographical errors. Occasional wrong-word or ``sound-alike substitutions may have occurred due to the inherent limitations of voice recognition software. These areas are purely typographical due to imperfections of the software programs and do not reflect any compromise in the patient's medical care. Please read the chart carefully and recognize, using context, where these substitutions have occurred. Plan discussed with: Patient NYHA Physical activity limitations: NA Date of Service: Apr 12, 2025 Billing Provider: OCTAVIO ABRAMS Cardiology Common Codes: 57636-IKPYHMB INP/OBS CARE (High) Cardiology Consultation Codes: 85769-[id number] CONSULT <45MIN OCTAVIO ABRAMS Apr 12, 2025 11:47
[2025-04-12] MEDS ORDERED: HEPARIN IN NS 1000Units/500mL 1,500 ML ONE (13:14)
[2025-04-12] MEDS ORDERED: IOHEXOL 350 MG/ML 100ML IJ ONE (13:14)
--- NOTE | 2025-04-12 13:19 | DVHSR ---
APPROVED REPORT EXAM: Two-dimensional and M-mode echocardiogram with Doppler and color Doppler. Blood Pressure: 100/32 mmHg INDICATION Evaluate cardiac function, wall motion abnormalities RISK FACTORS Height: 6'2", Weight: 200 DIMENSIONS LVDd5.5 (3.8-5.7cm)LA (2D)4.2 (1.9-4.0cm)Aortic Root3.7 (2.0-3.7cm) LVDs3.8 (2.5-4.0cm)LA (MM) (1.9-4.0cm)Aortic Cusp Exc2.0 (1.5-2.0cm) EF (%) 60.0 (55-70%)Rt. Atrium3.9 (1.9-4.0cm)Asc. Aorta cm IVSd0.9 (0.7-1.1cm)RV (D)4.0 (1.8-2.4cm) PWd0.9 (0.7-1.1cm) Mitral Valve MitralMitral Stenosis E wave0.71m/sMV Mean GR.mmHg A wave0.33m/sMV Peak GR.mmHg E/A ratio2.22D MVAcm2 DECEL [id number] 1/2 Timems Aortic Valve Aortic ValveAortic Stenosis V11.06m/Mariajose Mean GR.2mmHg V21.10m/Mariajose Peak GR.5mmHg LVOT Diameter2.4 (1.8-2.4cm)Doppler AVA4.36cm2 Pulmonic Valve V20.92m/s Tricuspid Valve TR Velocity2.76m/s [id number] Conclusion Technically good study. Sinus rhythm. Mild LV enlargement. Left atrial enlargement. Valves appear to be structurally normal. Valves are structurally normal. Mild aortic sclerosis without stenosis. Left ventricular function is preserved at 55% with normal RV function. Mild aortic insufficiency. Mild tricuspid regurgitation. No pericardial effusion masses or vegetations.
[2025-04-12] MEDS ORDERED: VERAPAMIL 2.5MG/ML INJ 2ML VIAL IV ONE (13:22)
[2025-04-12] MEDS ORDERED: HEPARIN SODIUM (PORCINE) 5000 UNITS/ML 1ML VIAL ONE (13:22)
[2025-04-12] MEDS ORDERED: ANGIOMAX 250 MG VIAL IV ONE ×2 (13:22→14:35)
[2025-04-12] MEDS ORDERED: fentaNYL CITRATE 100 MCG/2 ML VL ONE (13:22)
[2025-04-12] MEDS ORDERED: SODIUM CHL 0.9% 50 ML ONE ×2 (13:23→14:35)
[2025-04-12] MEDS ORDERED: LIDOCAINE 2%HCL (LOCAL ANESTH.) INJ 20ML MDV ONE (13:23)
[2025-04-12] MEDS ORDERED: MIDAZOLAM HCL 2MG/2ML 2ml VIAL (1mg/ml) ONE (13:23)
[2025-04-12] MEDS ORDERED: EPTIFIBATIDE DRIP(0.75MG/ML) 100 ML IV ONE (14:14)
[2025-04-12] MEDS ORDERED: EPTIFIBATIDE INJ (2MG/ML) 10ML VIAL IV ONE (14:14)
[2025-04-12] MEDS ORDERED: IODIXANOL 320MG/ML 100ML BTL IV ONE (14:30)
[2025-04-12] MEDS ORDERED: CLOPIDOGREL BISULFATE 75 MG TAB ONE (15:29)
--- NOTE | 2025-04-12 15:55 | DVHOP2 ---
Operative Report - 2 Report Details Date: 04/12/25 Preop Diagnosis: Acute coronary syndrome Postop Diagnosis: CAD Surgeon: Mo Yadav MD Anesthesiologist: Conscious sedation Anesthesia: Mac, Local Consent: The patient was informed of the risks and benefits of the procedure. These include but are not limited to complications of anesthesia, postoperative infection, incomplete relief of symptoms, recurrence of symptoms, damage to blood vessels, nerves and tendons, deep venous thrombosis, pulmonary embolism and possible need for repeat surgery in the future. Complications: No complications Findings: RCA occlusion, lad stenosis Indications for Surgery: Acute coronary syndrome/chest pain Name of Procedure Performed Left heart catheterization bilateral cine coronary angiography. Left ventriculography. Thrombectomy of RCA. PTCA and stenting of RCA. Intravascular ultrasound evaluation of RCA and LAD. PTCA and stenting of LAD. Shockwave therapy of the LAD. FFR evaluation of LAD. Procedure Details Procedure Details: Prior local anesthesia with 2% lidocaine to the right wrist and full informed consent obtained the patient was prepped and draped in usual fashion followed by placement of a six Belgian sheath into the radial artery through which a NextCare catheter was used for ventriculography and cannulation of both right and left coronary ostia. We then proceed with angioplasty as will be delineated below. Hemodynamics: Aortic blood pressure is 100/60 in, end-diastolic pressure was eight. There was no gradient across the aortic valve on pullback. Coronary anatomy: The RCA is a medium caliber vessel it is normal in its proximal and mid section. It gives off acute marginal branch that supplies the PDA territory. The posterolateral branches occluded as well as the mid to distal RCA. Left main is a medium caliber vessel it is normal. The circumflex is a medium caliber it is normal. Left anterior descending coronary artery is a large vessel it has a 80% proximal stenosis. Fractional flow reserve evaluation corroborate a significant lesion at 0.8 Indicating severe disease. There was a large diagonal that comes off the proximal LAD that appears to be free of significant disease. Ventriculography in the DIAZ projection shows an EF of 60%. With what appears to be inferobasal hypokinesis. Angioplasty was performed for which a JR4 guide was placed into the RCA and a Specter wire across the area of stenosis followed by a penumbra device to perform thrombectomy. We performed several runs and obtained notable amount of thrombus. We saw a residual lesion subsequent to an intravascular ultrasound evaluation with a [employer] device and size significant amount of plaquing as well. We then placed a two five by12 balloon into the distal RCA and stented with a 2.5 by12 mm kim stent. Intravascular ultrasound also revealed a significant plaquing in the mid RCA for which we placed a 3-0 by18 mm kim drug-eluting stent to the mid RCA. Excellent antegrade flow was noted thereafter. There was no further thrombus and/or dissections. We then addressed the left anterior descending coronary artery by placing a three five EBU guide followed by placement of a Specter wire across the area of stenosis and intravascular ultrasound was then used to delineate the anatomy and plaque formation. We noticed a significant amount of calcium within the proxima l left anterior descending coronary artery for which we took a two5 x 15 shockwave balloon and performed several treatments along the proximal LAD which was also significantly calcified. We then proceeded to stent with a two five by34 mm stent across the ostium of the left anterior descending to the segment just beyond the 2nd diagonal branch. We jailed the 1st diagonal however there was no significant impingement of flow. GRACE two flow was noted before and after stenting of the left anterior descending coronary artery. Impression: Normal left ventricular end-diastolic pressure at rest with normal ejection fraction with mild inferobasal hypokinesis. Successful PTCA and stenting of left anterior descending coronary artery and of the RCA for severe stenosis and occlusion respectively. Recommendations: Dual antiplatelet therapy lipid-lowering therapy smoking cessation risk factor modification. Condition Good Disposition Still a Patient Date of Service: Apr 12, 2025 Billing Provider: MO YADAV Sr., MD Cardiology Common Codes: 16700-[id number] INP/OBS CARE (High) Cardiology Procedure Codes: 52261 -PTCA W/STENT PLACEMENT, 82670-VQEI FOR STEMI W/STENT, 98144-YGSN ADD COR ART/BRNCH/GRFT, 09407-S HEART CATH MARYCHUY 02SAT, 18356-FCJP HEART CATH W/INTRA INJ MO YADAV Sr., MD Apr 12, 2025 15:55
[2025-04-12] MEDS: ONDANSETRON HCL 4 MG/2 ML VIAL IV PRN (16:32)
--- NOTE | 2025-04-12 17:39 | DVHPN2 ---
Subjective Chest pain improving, seen at bedside today Reviewed: H&P Changes from previous H/P or p: No Changes General: Per HPI Eyes: No Pain, No Vision change, No Conjunctivae inflammation, No Eyelid inflammation, No Other, No Redness ENT: No Ear pain, No Ear discharge, No Nose pain, No Nose discharge, No Nose congestion, No Mouth pain, No Mouth swelling, No Throat pain, No Throat swelling, No Other Cardiovascular: Chest Pain; No Palpitations, No Orthopnea, No Paroxysmal Noc. Dyspnea, No Edema, No Lt Headedness; Other (Bradycardia) Respiratory: No Cough, No Dry, No Shortness of breath, No SOB with excertion, No Wheezing, No Hemoptysis, No Pleuritic Pain, No Sputum, No Other Gastrointestinal: No Nausea, No Vomiting, No Abdominal Pain, No Diarrhea, No Constipation, No Melena, No Hematochezia, No Other Genitourinary: No Dysuria, No Frequency, No Incontinence, No Hematuria, No Retention, No Other Musculoskeletal: No other, No neck pain, No shoulder pain, No arm pain, No back pain, No hand pain, No leg pain, No foot pain Skin: No Rash, No Lesions, No Jaundice, No Bruising, No Other Objective Vitals Vital Signs Date Time Temp Pulse Resp B/P (MAP) Pulse Ox O2 Delivery O2 Flow Rate FiO2 04/12/25 16:17 98.3 45 13 91/39 (56) 98 98.3 04/12/25 00:52 Room Air* 0 21 Intake/Output Intake and Output 04/12/25 07:00 Intake Total 300 ml Output Total 1 ml Balance 299 ml Intake Oral 300 ml Output Urine Total 1 ml Exam GEN: Healthy appearing, well-developed, NAD. HEENT: NC/AT; MMM. CV: RRR, no m/r/g. LUNGS: CTAB, no w/r/c. ABD: Soft, NT/ND, NBS, no masses or organomegaly. EXT: skin Warm, well perfused. no rashes. No clubbing, cyanosis, or edema. NEURO: Ambulating with no limitations. No focal deficits. Medications Current Medications Medications Dose Ordered Sig/Linda Route Start Time Stop Time Status Last Admin Dose Admin Aspirin 81 mg DAILY PO 04/12/25 10:00 04/12/25 10:16 81 MG Sodium Chloride 10 ml Q8HR IV 04/11/25 22:00 04/12/25 06:00 10 ML Acetaminophen/ Hydrocodone Bitart 1 tab Q4HP PRN PO 04/11/25 19:45 04/12/25 10:16 1 TAB Ondansetron HCl 4 mg Q4HP PRN IV 04/11/25 19:45 04/12/25 16:32 4 MG Docusate Sodium 100 mg BIDPRN PRN PO 04/11/25 19:45 Acetaminophen 650 mg Q6HP PRN PO 04/11/25 19:45 Nitroglycerin 0.4 mg Q5MINP PRN SL 04/11/25 21:45 Morphine Sulfate 2 mg Q30M PRN IV 04/11/25 21:45 Calcium Carbonate 500 mg Q8HP PRN PO 04/12/25 06:00 Atorvastatin Calcium 40 mg HS PO 04/12/25 22:00 Laboratory Results Laboratory Tests 04/12/25 06:23 Chemistry Test 04/12/25 06:23 Albumin 4.1 g/dL (3.2-4.8) Calcium Level 8.9 mg/dL (8.7-10.4) Magnesium Level 2.0 mg/dL (1.6-2.6) Total Protein 6.4 g/dL (5.7-8.2) Lipid panel Test 04/12/25 06:23 Cholesterol Level 177 mg/dL (< 200) HDL Cholesterol 31 mg/dL (40-59) L Triglycerides Level 164 mg/dL (< 150) H LFT Test 04/12/25 06:23 Alanine Aminotransferase (ALT) 44 U/L (7-40) H Alkaline Phosphatase 74 U/L (46-116) Aspartate Amino Transferase (AST) 151 U/L (13-40) H Total Bilirubin 0.8 mg/dL (0.2-1.0) HgA1c, TSH Test 04/12/25 06:23 Thyroid Stimulating Hormone (TSH) 1.94 uIU/mL (0.55-4.78) Urinalysis Test 04/12/25 03:00 Urine Color Yellow (Yellow) Urine Clarity Clear (Clear) Urine pH 6.0 (5.0-9.0) Urine Specific [place] 1.037 (1.001-1.035) Urine Protein Trace (Negative) H Urine Ketones Trace (Negative) Urine Blood Negative /uL (Negative) Urine Nitrite Negative (Negative) Urine Bilirubin Negative (Negative) Urine Urobilinogen 3 mg/dL (Negative) H Urine Leukocyte Esterase Negative /uL (Negative) Urine RBC 1 /hpf (0 - 3) Urine Microscopic WBC 3 /HPF (0-3) Urine Squamous Epithelial Cells Few /hpf (<5) Urine Bacteria Few /hpf (None Seen) H Urine Hyaline Casts Few /lpf (0 - 2) Urine Mucus Few (None Seen) Urine Glucose Normal mg/dL (Normal) Labs and/or images reviewed: Labs reviewed by me, Image(s) reviewed by me Assessment/Plan Assessment/Plan 69-year-old male who denies past medical history presented to [facility] ED with complaint of chest pain. Patient [id number] he was outside doing yard work when chest pain spontaneously begun. Patient states chest pain as intermittent, diaphoretic, with no associated relieving factors. 04/12: Patient taken to left heart catheterization today. Unstable angina Intractable chest pain, due to above Evolved inferior wall myocardial infarction, rule out coronary artery disease Rule out structural heart disease Dyslipidemia Benign prostatic hyperplasia Psoriatic arthritis Family history of ischemic heart disease Tobacco use Plan: Prn analgesia Aspirin 81 Lipitor 40 Nitroglycerin sublingual for chest pain Prn antiemetics Cardiology consult Plan for left heart catheterization ICU Full code Plan discussed with: Patient Date of Service: Apr 12, 2025 Billing Provider: MARY PHELPS MD Common Visit Codes: [id number] CARE 30-74 MIN MARY PHELPS MD Apr 12, 2025 17:38
[2025-04-12] MEDS ORDERED: CALCIUM CARB 500 MG CHEW TAB ONE (20:17)
[2025-04-12] MEDS: CALCIUM CARB 500 MG CHEW TAB PO PRN (20:19)
[2025-04-12] MEDS: ATORVASTATIN 20 MG TAB PO SCH (22:00)
[2025-04-13] VITALS (45 sets, daily range): BP systolic 81–114; BP diastolic 42–63; PULSE 44–64; RESP 10–20; TEMP 97.6–99.5; O2SAT 97–100
[2025-04-13 04:38] LABS: Hematocrit 34.3 % (41.0-53.0); Hemoglobin 11.6 g/dL (13.5-17.5); Mean Corpuscular Hemoglobin 30.6 pg (28.0-32.0); Mean Corpuscular Volume 90.1 fL (80.0-100.0); Nucleated Red Blood Cells % 0.0 %
[2025-04-13 04:47] LABS: Alkaline Phosphatase 72 U/L (46-116); Anion Gap 10 (5-15); BUN/Creatinine Ratio 7.6 (10.0-20.0); Calcium 8.8 mg/dL (8.7-10.4); Carbon Dioxide 24 mmol/L (20-31); Chloride 106 mmol/L (98-107); Glucose 88 mg/dL (74-106); Magnesium 2.1 mg/dL (1.6-2.6); Potassium 4.1 mmol/L (3.5-5.1); Sodium 140 mmol/L (136-145); Total Protein 6.2 g/dL (5.7-8.2)
[2025-04-13 04:48] LABS: Albumin 3.9 g/dL (3.2-4.8)
[2025-04-13 04:49] LABS: Bilirubin, Total 0.8 mg/dL (0.2-1.0)
[2025-04-13 04:54] LABS: Alanine Aminotransferase 48 U/L (7-40); Blood Urea Nitrogen 8 mg/dL (9-23)
--- NOTE | 2025-04-13 08:05 | ECG ---
[facility] Test Date: 2025-04-12 Test Time: 19:56:56 Pat Name: NATACHA SAN Department: ICU Room: [address] [place] [address] Gender: M [employer] Wildlife [employer]: CHRIS : 1955 Requested By: OCTAVIO ABRAMS Order Number: [id number] Reading MD: Measurements Intervals [place] Rate: 46 P: 71 CA: 161 QRS: 5 QRSD: 101 T: 88 QT: 438 QTc: 384 Interpretive Statements Sinus bradycardia Consider RVH or posterior infarct ST elevation, consider inferior injury Baseline wander in lead(s) V6 Please click the below link to view image of tracing.
--- NOTE | 2025-04-13 09:31 | DVHPN2 ---
Consult Progress Note Date Seen: Apr 13, 2025 Subjective Patient reports: No new complaints, Feels better Review of Systems: CVS:Normal, RESPIRATORY:Normal, NEURO:Normal Other Systems: Denies any cardiac symptoms Objective vital signs Vital Sign Date Time Temp Pulse Resp B/P (MAP) Pulse Ox O2 Delivery O2 Flow Rate FiO2 04/13/25 08:15 57 10 91/59 (70) 99 04/13/25 08:00 Room Air* 0 21 04/13/25 08:00 98.3 98.3 Total Intake and Output 04/12/25 04/12/25 04/13/25 15:00 23:00 07:00 Intake Total 0 ml 240 ml Output Total 0 ml 1800 ml Balance 0 ml -1560 ml medications Current Medications Medications Dose Ordered Sig/Linda Route Start Time Stop Time Status Last Admin Dose Admin Aspirin 81 mg DAILY PO 04/12/25 10:00 04/12/25 10:16 81 MG Sodium Chloride 10 ml Q8HR IV 04/11/25 22:00 04/13/25 06:18 10 ML Acetaminophen/ Hydrocodone Bitart 1 tab Q4HP PRN PO 04/11/25 19:45 04/12/25 10:16 1 TAB Ondansetron HCl 4 mg Q4HP PRN IV 04/11/25 19:45 04/12/25 16:32 4 MG Docusate Sodium 100 mg BIDPRN PRN PO 04/11/25 19:45 Acetaminophen 650 mg Q6HP PRN PO 04/11/25 19:45 Nitroglycerin 0.4 mg Q5MINP PRN SL 04/11/25 21:45 Morphine Sulfate 2 mg Q30M PRN IV 04/11/25 21:45 Calcium Carbonate 500 mg Q8HP PRN PO 04/12/25 06:00 04/12/25 20:19 500 MG Atorvastatin Calcium 40 mg HS PO 04/12/25 22:00 Clopidogrel Bisulfate 75 mg DAILY PO 04/13/25 10:00 Examination: LUNGS:Normal, CVS:Normal, NEURO:Normal laboratory and microbiology Laboratory Tests 04/13/25 03:19 Test 04/13/25 03:19 Range/Units Serum Glucose 88 74-106 mg/dL Problem List/Assessment/Plan Problem List/Assessment/Plan Evolved inferior wall myocardial infarction Pertinent family history of CAD Pre-diabetes, newly diagnosed Dyslipidemia Benign prostatic hyperplasia Psoriatic arthritis Tobacco use Plan/Recommendation (Dr. Yadav) * Transthoracic echocardiogram revealed LVEF 55% with normal LV function * Dual-antiplatelet therapy with Plavix (uninterrupted for 1 year) and high- statin lipid-lowering agent * Beta-shaka held secondary to borderline blood pressures/bradycardia at rest * Counseled on medications, Mediterranean diet, and tobacco cessation * Initiate DVT/VTE prophylaxis The patient underwent a successful coronary angiogram with left cardiac catheterization status post PTCA and stenting with thrombectomy of the RCA x 2 ELIEL and PTCA and stenting with shockwave therapy of the proximal LAD x 1 ELIEL. Noted to be in a sinus bradycardia rhythm at rest which improved with activity. Given borderline blood pressures, we will hold off on beta-shaka at this time. He is asymptomatic and states his normal SBP ranges in between 100-120 mmHg. Transfer to Telemetry. Further orders per clinical course. Thank you for allowing us to care for this patient. Please call with any questions or concerns. Critical care time: 30 min. This medical document was created using an electronic medical record system with voice recognition software and computerized dictation system. Although this document has been carefully reviewed, there might still be some phonetic and typographical errors. Occasional wrong-word or ``sound-alike substitutions may have occurred due to the inherent limitations of voice recognition software. These areas are purely typographical due to imperfections of the software programs and do not reflect any compromise in the patient's medical care. Please read the chart carefully and recognize, using context, where these substitutions have occurred. Plan discussed with: Patient, Other Date of Service: Apr 13, 2025 Billing Provider: LUIS BULLARD Cardiology Common Codes: [id number] CARE 30-74 MIN LUIS BULLARD Apr 13, 2025 09:31
[2025-04-13] MEDS ORDERED: CLOPIDOGREL BISULFATE 75 MG TAB ONE (10:06)
[2025-04-13] MEDS: CLOPIDOGREL BISULFATE 75 MG TAB PO SCH (10:10)
--- NOTE | 2025-04-13 12:40 | ECG ---
[facility] Test Date: 2025-04-11 Test Time: 12:55:18 Pat Name: NATACHA SAN Department: Room: 0217T Gender: M Assistant Accounting Manager: SHANTE : 1955 Requested By: TILA WHEAT Order Number: [id number] Reading MD: Aaron Yadav Measurements Intervals [place] Rate: 48 P: 80 MI: 177 QRS: 74 QRSD: 106 T: 96 QT: 461 QTc: 412 Interpretive Statements Sinus bradycardia Consider right ventricular hypertrophy Nonspecific T abnormalities, lateral leads ST elevation, consider inferior injury Electronically Signed On 04-15-2025 9:31:09 PDT by Aaron Yadav Please click the below link to view image of tracing.
--- NOTE | 2025-04-13 16:17 | DVHPNRES ---
Progress Note Date Seen: Apr 13, 2025 Resident Creating Document: UMESH BRANCH RESIDENT Medical Necessity Reason Pt with a Central, PICC or Fol: No Subjective Review of Systems This is a 69-year-old male with past medical history of dyslipidemia, GERD, BPH, psoriatic arthritis presented to the emergency room with chief complaint of chest pain. the patient states that chest pain began shortly after he was working on his yd tinea hold at around 11:00 a.m. yesterday. he described the pain as unprovoked, constant, in nature substernal with radiation to bilateral upper extremity 03/08 associated with shortness of breath, nausea and diaphoresis. he also mentioned few days ago he suddenly felt chest tightness but he did not seek any medical attention that time. was hold and patient was brought to the emergency room for further evaluation. EKG revealed sinus bradycardia with SD elevation in the inferior leads and reciprocal changes T inversion in lateral leads. the patient underwent left heart catheterization with PTCA x2 in LAD and RCA. . Was uneventful, heart rate improved to 50s and hypotension resolved. Patient was seen examined in the ICU. oriented x3. feeling better, heart rate is in 50s and blood pressure was soft but map around 65. Had 1 episode of NSVT for 6 seconds . Downgraded to telemetry. Patient is not stable for transfer to [place]. Objective vital signs Vital Sign Date Time Temp Pulse Resp B/P (MAP) Pulse Ox O2 Delivery O2 Flow Rate FiO2 04/13/25 12:00 18 99 Room Air* 0 21 04/13/25 12:00 53 04/13/25 12:00 98.7 93/48 (63) 98.7 Total Intake and Output 04/12/25 04/12/25 04/13/25 14:59 22:59 06:59 Intake Total 0 ml 240 ml Output Total 0 ml 1800 ml Balance 0 ml -1560 ml medications Current Medications Medications Dose Ordered Sig/Linda Route Start Time Stop Time Status Last Admin Dose Admin Aspirin 81 mg DAILY PO 04/12/25 10:00 04/13/25 10:10 81 MG Sodium Chloride 10 ml Q8HR IV 04/11/25 22:00 04/13/25 13:38 10 ML Acetaminophen/ Hydrocodone Bitart 1 tab Q4HP PRN PO 04/11/25 19:45 04/12/25 10:16 1 TAB Ondansetron HCl 4 mg Q4HP PRN IV 04/11/25 19:45 04/12/25 16:32 4 MG Docusate Sodium 100 mg BIDPRN PRN PO 04/11/25 19:45 Acetaminophen 650 mg Q6HP PRN PO 04/11/25 19:45 Nitroglycerin 0.4 mg Q5MINP PRN SL 04/11/25 21:45 Morphine Sulfate 2 mg Q30M PRN IV 04/11/25 21:45 Calcium Carbonate 500 mg Q8HP PRN PO 04/12/25 06:00 04/12/25 20:19 500 MG Clopidogrel Bisulfate 75 mg DAILY PO 04/13/25 10:00 04/13/25 10:10 75 MG Atorvastatin Calcium 80 mg HS PO 04/13/25 22:00 Enoxaparin Sodium 40 mg DAILY SC 04/14/25 15:25 Examination Physical examination: General Appearance: Alert, Oriented X3, Cooperative, No acute distress HEENT: Atraumatic, PERRLA, EOMI, Mucous membrane moist/pink Respiratory: Clear to auscultation, Normal air movement Cardiovascular: Regular rate, Normal S1, Normal S2, No murmurs, no chest wall tenderness Abdominal: Normal bowel sounds, Soft, No tenderness, No hepatospenomegaly, No masses Extremities: No clubbing, No cyanosis, No edema, Normal pulses, No tenderness/swelling Skin: No rashes, No breakdown, No significant lesion Neuro: Normal speech, Strength at 5/5 X4 ext, Normal tone, Sensation intact, Cranial nerves 3-12 NL, Reflexes 2+ Psych/Mental Status: Mental status NL, Mood NL laboratory and microbiology Laboratory Tests 04/13/25 03:19 Test 04/13/25 03:19 Range/Units Serum Glucose 88 74-106 mg/dL Microbiology Date/Time Source Procedure Growth Status 04/12/25 17:00 Nose MRSA Screen - Final Complete Labs and/or images reviewed: Labs reviewed by me, Image(s) reviewed by me Problem List/Assessment/Plan Problem List/Assessment/Plan Assessment and plan: Evolved inferior wall [place] S/P PTCA X2 In LAD and RCA Hypertensive heart disease Dyslipidemia Transaminitis Benign prostatic hyperplasia Psoriatic Arthritis Nicotine dependence Plan: - Continue DAPT with aspirin 81 mg and Plavix 75 mg daily - Atorvastatin 80 mg p.o. at HS - Beta shaka is held secondary to bradycardia/borderline blood pressure - counseled patient regarding smoking cessation, diet, lifestyle modification and physical exercise - physical therapy - resumed home medications. Critical care time excluding procedures is 38 mins Goal of care discussed with the patient for more than 20 minutes full code Plan discussed with Dr. Del Rio Plan discussed with: Patient, Spouse, Other (RN) Date of Service: Apr 13, 2025 Billing Provider: EMILY DEL RIO MD Common Visit Codes: [id number] CARE 30-74 MIN UMESH BRANCH RESIDENT Apr 13, 2025 16:17 EMILY DEL RIO MD Apr 14, 2025 16:53
[2025-04-13] MEDS: ATORVASTATIN 20 MG TAB PO SCH (21:15)
[2025-04-14 05:00] VITALS: BP 100/60; PULSE 56; RESP 16; TEMP 98.5; O2SAT 97
[2025-04-14 07:59] VITALS: BP 92/57; PULSE 59; RESP 18; TEMP 98.3; O2SAT 95
[2025-04-14 08:00] VITALS: PULSE 50; PULSE 59; RESP 18; O2SAT 95
[2025-04-14 08:27] LABS: Hematocrit 34.8 % (41.0-53.0); Hemoglobin 11.8 g/dL (13.5-17.5); Mean Corpuscular Hemoglobin 30.5 pg (28.0-32.0); Mean Corpuscular Volume 90.1 fL (80.0-100.0); Nucleated Red Blood Cells % 0.3 %
--- NOTE | 2025-04-14 08:42 | DVHPN2 ---
Consult Progress Note Date Seen: Apr 14, 2025 Subjective Patient reports: No new complaints, Feels better Other Systems: Denies any symptoms Objective vital signs Vital Sign Date Time Temp Pulse Resp B/P (MAP) Pulse Ox O2 Delivery O2 Flow Rate FiO2 04/14/25 07:59 98.3 59 18 92/57 (69) 95 98.3 04/13/25 20:00 Room Air* 0 21 Total Intake and Output 04/13/25 04/13/25 04/14/25 15:00 23:00 07:00 Intake Total 240 ml Balance 240 ml medications Current Medications Medications Dose Ordered Sig/Linda Route Start Time Stop Time Status Last Admin Dose Admin Aspirin 81 mg DAILY PO 04/12/25 10:00 04/13/25 10:10 81 MG Sodium Chloride 10 ml Q8HR IV 04/11/25 22:00 04/14/25 06:00 10 ML Acetaminophen/ Hydrocodone Bitart 1 tab Q4HP PRN PO 04/11/25 19:45 04/12/25 10:16 1 TAB Ondansetron HCl 4 mg Q4HP PRN IV 04/11/25 19:45 04/12/25 16:32 4 MG Docusate Sodium 100 mg BIDPRN PRN PO 04/11/25 19:45 Acetaminophen 650 mg Q6HP PRN PO 04/11/25 19:45 Nitroglycerin 0.4 mg Q5MINP PRN SL 04/11/25 21:45 Morphine Sulfate 2 mg Q30M PRN IV 04/11/25 21:45 Calcium Carbonate 500 mg Q8HP PRN PO 04/12/25 06:00 04/12/25 20:19 500 MG Clopidogrel Bisulfate 75 mg DAILY PO 04/13/25 10:00 04/13/25 10:10 75 MG Atorvastatin Calcium 80 mg HS PO 04/13/25 22:00 04/13/25 21:15 80 MG Enoxaparin Sodium 40 mg DAILY SC 04/14/25 15:25 Examination: LUNGS:Normal, CVS:Normal, NEURO:Normal (Sinus bradycardia at rest) laboratory and microbiology Laboratory Tests 04/14/25 07:02 Test 04/14/25 07:02 Range/Units Serum Glucose Pending Problem List/Assessment/Plan Problem List/Assessment/Plan Evolved inferior wall myocardial infarction status post PTCA x 3DES Pertinent family history of CAD Pre-diabetes, newly diagnosed Dyslipidemia Benign prostatic hyperplasia Psoriatic arthritis Tobacco use Plan/Recommendation (Dr. Yadav) * Transthoracic echocardiogram revealed LVEF 55% with normal LV function * Dual-antiplatelet therapy with Plavix (uninterrupted for 1 year) and high- statin lipid-lowering agent * Beta-shaka held secondary to borderline blood pressures/bradycardia at rest * Counseled on medications, Mediterranean diet, and tobacco cessation The patient underwent a successful coronary angiogram with left cardiac catheterization status post PTCA and stenting with thrombectomy of the RCA x 2 ELIEL and PTCA and stenting with shockwave therapy of the proximal LAD x 1 ELIEL. Noted to be in a sinus bradycardia rhythm at rest which improved with activity. Given borderline blood pressures, we will hold off on beta-shaka at this time. Blood work pending this morning. There is no further cardiac work-up indicated at this time. Follow-up with primary electrical appliance mechanic at [facility] within 1-2 weeks post-discharge. Thank you for allowing us to care for this patient. This medical document was created using an electronic medical record system with voice recognition software and computerized dictation system. Although this document has been carefully reviewed, there might still be some phonetic and typographical errors. Occasional wrong-word or ``sound-alike substitutions may have occurred due to the inherent limitations of voice recognition software. These areas are purely typographical due to imperfections of the software programs and do not reflect any compromise in the patient's medical care. Please read the chart carefully and recognize, using context, where these substitutions have occurred. Plan discussed with: Patient, Other Date of Service: Apr 14, 2025 Billing Provider: LUIS BULLARD Cardiology Common Codes: [id number] CARE(High LUIS BULLARD Apr 14, 2025 08:42
[2025-04-14 08:44] LABS: Alanine Aminotransferase 36 U/L (7-40); Alkaline Phosphatase 74 U/L (46-116); Anion Gap 9 (5-15); BUN/Creatinine Ratio 10.0 (10.0-20.0); Blood Urea Nitrogen 12 mg/dL (9-23); Calcium 9.0 mg/dL (8.7-10.4); Carbon Dioxide 27 mmol/L (20-31); Chloride 103 mmol/L (98-107); Glucose 95 mg/dL (74-106); Potassium 4.4 mmol/L (3.5-5.1); Sodium 139 mmol/L (136-145); Total Protein 6.3 g/dL (5.7-8.2)
[2025-04-14 08:45] LABS: Albumin 4.0 g/dL (3.2-4.8); Bilirubin, Total 0.8 mg/dL (0.2-1.0)
[2025-04-14] MEDS ORDERED: ASPI81CH59 PO (09:04)
[2025-04-14] MEDS ORDERED: CLOP75TA70 PO (09:04)
[2025-04-14] MEDS ORDERED: ATOR-47 PO (09:04)
[2025-04-14] MEDS: ENOXAPARIN SOD 40 MG/0.4 ML SYRINGE SC SCH (10:46)
[2025-04-14 11:30] VITALS: BP 91/51; PULSE 59; RESP 18; TEMP 36.8; O2SAT 96
[2025-04-14 13:00] VITALS: BP 105/64; PULSE 58; RESP 18; TEMP 98.3; O2SAT 94
--- NOTE | 2025-04-14 14:04 | DVHDSRES ---
Discharge Summary Date of Admission Resident Creating Document: UMESH BRANCH RESIDENT Apr 11, 2025 at 21:41 Date of Discharge: Apr 14, 2025 Admitting Diagnosis Chest pain due to acute inferior wall PR Wounds: No open wound was present Labs/Diagnostic Data: Laboratory Results Test 04/14/25 07:02 04/13/25 03:19 04/12/25 12:50 04/12/25 06:23 White Blood Count 6.2 10^3/uL (4.4-10.8) Red Blood Count 3.86 10^6/uL (4.5-5.90) Hemoglobin 11.8 g/dL (13.5-17.5) Hematocrit 34.8 % (41.0-53.0) Mean Corpuscular Volume 90.1 fL (80.0-100.0) Mean Corpuscular Hemoglobin 30.5 pg (28.0-32.0) Mean Corpuscular Hemoglobin Concent 33.8 g/dL (32.0-36.0) Red Cell Distribution Width 18.1 % (11.8-14.3) Platelet Count 75 10^3/uL (140-450) Mean Platelet Volume 7.9 fL (6.9-10.8) Neutrophils (%) (Auto) 66.3 % (37.0-80.0) Lymphocytes (%) (Auto) 16.8 % (10.0-50.0) Monocytes (%) (Auto) 14.8 % (0.0-12.0) Eosinophils (%) (Auto) 1.7 % (0.0-7.0) Basophils (%) (Auto) 0.4 % (0.0-2.0) Neutrophils # (Auto) 4.1 10 ^3/uL (1.6-8.6) Lymphocytes # (Auto) 1.0 10 ^3/uL (0.4-5.4) Monocytes # (Auto) 0.9 10 ^3/uL (0-1.3) Eosinophils # (Auto) 0.1 10 ^3/uL (0-0.8) Basophils # (Auto) 0 10 ^3/uL (0-0.2) Nucleated Red Blood Cells 0.3 % Sodium Level 139 mmol/L (136-145) Potassium Level 4.4 mmol/L (3.5-5.1) Chloride Level 103 mmol/L (98-107) Carbon Dioxide Level 27 mmol/L (20-31) Anion Gap 9 (5-15) Blood Urea Nitrogen 12 mg/dL (9-23) Creatinine 1.20 mg/dL (0.700-1.30) Glomerular Filtration Rate Calc 65 mL/min (>90) BUN/Creatinine Ratio 10.0 (10.0-20.0) Serum Glucose 95 mg/dL (74-106) Calcium Level 9.0 mg/dL (8.7-10.4) Total Bilirubin 0.8 mg/dL (0.2-1.0) Aspartate Amino Transferase (AST) 63 U/L (13-40) Alanine Aminotransferase (ALT) 36 U/L (7-40) Alkaline Phosphatase 74 U/L (46-116) Total Protein 6.3 g/dL (5.7-8.2) Albumin 4.0 g/dL (3.2-4.8) Magnesium Level 2.1 mg/dL (1.6-2.6) Troponin I High Sensitivity > 77599 ng/L (</=54) Erythrocyte Sedimentation Rate 3 mm/hr (0-20) C-Reactive Protein High Sensitivity 0.03 mg/dL (<1.0) Triglycerides Level 164 mg/dL (< 150) Cholesterol Level 177 mg/dL (< 200) LDL Cholesterol 130 mg/dL (< 100) HDL Cholesterol 31 mg/dL (40-59) Thyroid Stimulating Hormone (TSH) 1.94 uIU/mL (0.55-4.78) Test 04/12/25 03:00 04/11/25 12:20 Urine Color Yellow (Yellow) Urine Clarity Clear (Clear) Urine pH 6.0 (5.0-9.0) Urine Specific [place] 1.037 (1.001-1.035) Urine Protein Trace (Negative) Urine Ketones Trace (Negative) Urine Blood Negative /uL (Negative) Urine Nitrite Negative (Negative) Urine Bilirubin Negative (Negative) Urine Urobilinogen 3 mg/dL (Negative) Urine Leukocyte Esterase Negative /uL (Negative) Urine RBC 1 /hpf (0 - 3) Urine Microscopic WBC 3 /HPF (0-3) Urine Squamous Epithelial Cells Few /hpf (<5) Urine Bacteria Few /hpf (None Seen) Urine Hyaline Casts Few /lpf (0 - 2) Urine Mucus Few (None Seen) Urine Glucose Normal mg/dL (Normal) Urine Opiates Screen Neg (NEGATIVE) Urine Fentanyl Screen Neg (NEGATIVE) Urine Barbiturates Screen Neg (NEGATIVE) Urine Phencyclidine Screen Neg (NEGATIVE) Urine Amphetamines Screen Neg (NEGATIVE) Urine Benzodiazepines Screen Neg (NEGATIVE) Urine Cocaine Screen Neg (NEGATIVE) Urine Cannabinoids Screen Neg (NEGATIVE) Hemoglobin A1c 5.6 % A1C (<5.7) Other Laboratory Tests 04/14/25 07:02 Brief Hx & Hospital Course: This is a 69-year-old male with past medical history of dyslipidemia, GERD, BPH, psoriatic arthritis presented to the emergency room with chief complaint of chest pain. the patient states that chest pain began shortly after he was working on his [employer] hold at around 11:00 a.m. yesterday. he described the pain as unprovoked, constant, in nature substernal with radiation to bilateral upper extremity 10 associated with shortness of breath, nausea and diaphoresis. he also mentioned few days ago he suddenly felt chest tightness but he did not seek any medical attention that time. was hold and patient was brought to the emergency room for further evaluation. EKG revealed sinus bradycardia with SD elevation in the inferior leads and reciprocal changes T inversion in lateral leads. the patient underwent left heart catheterization with PTCA x2 in LAD and RCA. . Was uneventful, heart rate improved to 50s and hypotension resolved. Hospital course: Patient was emergently taken to [facility] and underwent a successful coronary angiogram with left cardiac catheterization status post PTCA and stenting with thrombectomy of the RCA x2 ELIEL and PTCA and stenting with shockwave therapy of the proximal LAD x1 ELIEL. Postoperative period was uneventful. Baseline patient's sinus bradycardia rhythm at rest and borderline blood pressure hold off on beta-shaka at this time. He is asymptomatic and states his normal SBP ranges in between 100-120 mm Hg. Patient was downgraded to telemetry and observed for 1 more days to monitor rhythm status and hemodynamic stability. He was able to walk to washroom and tolerate p.o. diet. Discharge plan was discussed with the patient and explained regarding the importance of DAPT for 1 year, healthy diet, lifestyle modification and physical exercise. Patient is being discharged to home with aspirin 81 mg p.o. daily, Plavix 75 mg daily, atorvastatin 80 mg at and advised to follow up with PCP in 1 week and Cardiology in 1-2 weeks. Physical examination: General Appearance: Alert, Oriented X3, Cooperative, No acute distress HEENT: Atraumatic, PERRLA, EOMI, Mucous membrane moist/pink Respiratory: Clear to auscultation, Normal air movement Cardiovascular: Regular rate, Normal S1, Normal S2, No murmurs, no chest wall tenderness Abdominal: Normal bowel sounds, Soft, No tenderness, No hepatospenomegaly, No masses Extremities: No clubbing, No cyanosis, No edema, Normal pulses, No tenderness/swelling Skin: No rashes, No breakdown, No significant lesion Neuro: Normal gait, Normal speech, Strength at 5/5 X4 ext, Normal tone, Sensation intact, Cranial nerves 3-12 NL, Reflexes 2+ Psych/Mental Status: Mental status NL, Mood NL Diagnosis: Evolved inferior wall PR S/P PTCA X2 In LAD and RCA Hypertensive heart disease Dyslipidemia Transaminitis Benign prostatic hyperplasia Psoriatic Arthritis Nicotine dependence time spent in discharge planning was 41 mins Consults/Reason for consult Cardiology was consulted Operations or Procedures Operative Report - 2 Report Details Date: 04/12/25 Preop Diagnosis: Acute coronary syndrome Postop Diagnosis: CAD Surgeon: Aaron Yadav MD Anesthesiologist: Conscious sedation Anesthesia: Mac, Local Consent: The patient was informed of the risks and benefits of the procedure. These include but are not limited to complications of anesthesia, postoperative infection, incomplete relief of symptoms, recurrence of symptoms, damage to blood vessels, nerves and tendons, deep venous thrombosis, pulmonary embolism and possible need for repeat surgery in the future. Complications: No complications Findings: RCA occlusion, lad stenosis Indications for Surgery: Acute coronary syndrome/chest pain Name of Procedure Performed Left heart catheterization bilateral cine coronary angiography. Left ventriculography. Thrombectomy of RCA. PTCA and stenting of RCA. Intravascular ultrasound evaluation of RCA and LAD. PTCA and stenting of LAD. Shockwave therapy of the LAD. FFR evaluation of LAD. Procedure Details Procedure Details: Prior local anesthesia with 2% lidocaine to the right wrist and full informed consent obtained the patient was prepped and draped in usual fashion followed by placement of a six Hebrew sheath into the radial artery through which a US [employer] catheter was used for ventriculography and cannulation of both right and left coronary ostia. We then proceed with angioplasty as will be delineated below. Hemodynamics: Aortic blood pressure is 100/60 in, end-diastolic pressure was eight. There was no gradient across the aortic valve on pullback. Coronary anatomy: The RCA is a medium caliber vessel it is normal in its proximal and mid section. It gives off acute marginal branch that supplies the PDA territory. The posterolateral branches occluded as well as the mid to distal RCA. Left main is a medium caliber vessel it is normal. The circumflex is a medium caliber it is normal. Left anterior descending coronary artery is a large vessel it has a 80% proximal stenosis. Fractional flow reserve evaluation corroborate a significant lesion at 0.8 Indicating severe disease. There was a large diagonal that comes off the proximal LAD that appears to be free of significant disease. Ventriculography in the DIAZ projection shows an EF of 60%. With what appears to be inferobasal hypokinesis. Angioplasty was performed for which a JR4 guide was placed into the RCA and a Specter wire across the area of stenosis followed by a penumbra device to perform thrombectomy. We performed several runs and obtained notable amount of thrombus. We saw a residual lesion subsequent to an intravascular ultrasound evaluation with a Kanoco device and size significant amount of plaquing as well. We then placed a two five by12 balloon into the distal RCA and stented with a 2.5 by12 mm kim stent. Intravascular ultrasound also revealed a significant plaquing in the mid RCA for which we placed a 3-0 by18 mm kim drug-eluting stent to the mid RCA. Excellent antegrade flow was noted thereafter. There was no further thrombus and/or dissections. We then addressed the left anterior descending coronary artery by placing a three five EBU guide followed by placement of a Specter wire across the area of stenosis and intravascular ultrasound was then used to delineate the anatomy and plaque formation. We noticed a significant amount of calcium within the proximal left anterior descending coronary artery for which we took a two5 x 15 shockwave balloon and performed several treatments along the proximal LAD which was also significantly calcified. We then proceeded to stent with a two five by34 mm stent across the ostium of the left anterior descending to the segment just beyond the 2nd diagonal branch. We jailed the 1st diagonal however there was no significant impingement of flow. GRACE two flow was noted before and after stenting of the left anterior descending coronary artery. Impression: Normal left ventricular end-diastolic pressure at rest with normal ejection fraction with mild inferobasal hypokinesis. Successful PTCA and stenting of left anterior descending coronary artery and of the RCA for severe stenosis and occlusion respectively. Recommendations: Dual antiplatelet therapy lipid-lowering therapy smoking cessation risk factor modification. EXAM: Two-dimensional and M-mode echocardiogram with Doppler and color Doppler. Blood Pressure: 100/32 mmHg INDICATION Evaluate cardiac function, wall motion abnormalities RISK FACTORS Height: 6'2", Weight: 200 DIMENSIONS LVDd 5.5 (3.8-5.7cm) LA (2D) 4.2 (1.9-4.0cm) Aortic Root 3.7 (2.0- 3.7cm) LVDs 3.8 (2.5-4.0cm) LA (MM) (1.9-4.0cm) Aortic Cusp Exc 2.0 (1.5- 2.0cm) EF (%) 60.0 (55-70%) Rt. Atrium 3.9 (1.9-4.0cm) Asc. Aorta cm IVSd 0.9 (0.7-1.1cm) RV (D) 4.0 (1.8-2.4cm) PWd 0.9 (0.7-1.1cm) Mitral Valve Mitral Mitral Stenosis E wave 0.71m/s MV Mean GR. mmHg A wave 0.33m/s MV Peak GR. mmHg E/A ratio 2.2 2D MVA cm2 DECEL Time 228ms PRESS 1/2 Time ms Aortic Valve Aortic Valve Aortic Stenosis V1 1.06m/s AO Mean GR. 2mmHg V2 1.10m/s AO Peak GR. 5mmHg LVOT Diameter 2.4 (1.8-2.4cm) Doppler SOFIYA 4.36cm2 Pulmonic Valve V2 0.92m/s Tricuspid Valve TR Velocity 2.76m/s RVSP 39mmHg Conclusion Technically good study. Sinus rhythm. Mild LV enlargement. Left atrial enlargement. Valves appear to be structurally normal. Valves are structurally normal. Mild aortic sclerosis without stenosis. Left ventricular function is preserved at 55% with normal RV function. Mild aortic insufficiency. Mild tricuspid regurgitation. No pericardial effusion masses or vegetations. Condition at Discharge: Good Final Diagnosis/Problems List Evolved inferior wall PR S/P PTCA X2 In LAD and RCA Hypertensive heart disease Dyslipidemia Transaminitis Benign prostatic hyperplasia Psoriatic Arthritis Nicotine dependence Discharge Disposition: Home Discharge Instruct/Medications Diet: Cardiac 2g Na,low cholest Activity: No Restrictions, As Tolerated Follow Up/Referral: Follow up with PCP in 1 week Follow up with down filler in 1-2 weeks Medications: Aspirin 81 mg p.o. daily, Plavix 75 mg daily and atorvastatin 80 mg p.o. at HS Scheduled Aspirin (Aspirin Low Dose), 1 TAB PO DAILY Atorvastatin Calcium (Atorvastatin Calcium), 1 TAB PO DAILY Clopidogrel Bisulfate (Clopidogrel), 1 TAB PO DAILY Discharge Statement: "Patient was advised to return to the ER or call 911 if any headaches, dizziness, shortness of breath, chest pain, abdominal pain, bleeding, fevers, or worsening of medical condition. Patient was counseled about treatment plan, medications, possible side effects, patientverbalized understanding. All questions were answered to the best of my ability. This discharge took greater then 30 minutes in planning, reviewing documentation, counseling the patient, and discussing with other team members." ASSESSMENT ASSESSMENT Assessment Evolved inferior STEMI, status post PTCA x2 Date of Service: Apr 14, 2025 Billing Provider: EMILY DEL RIO MD Common Visit Codes: 36147-VPS/OBS DISCH DAY >30min UMESH BRANCH RESIDENT Apr 14, 2025 14:04 EMILY DEL RIO MD Apr 18, 2025 12:23
== END 2025-04-14 12:45 | disposition home or self-care (01) | DRG 324 ==
LOC: EDBD 12:03 → ER 12:03 → OVERFLOW 21:41 → TELE-WESTW 23:31 → ICU WEST 04-12 16:40 → TELE-CENTR 04-13 13:18
PROVIDERS: ADMIT Internal Medicine; ATTEND Internal Medicine
PROC: 02F03ZZ Fragmentation in Coronary Artery, One Artery, Percutaneous Approach (ICD-10-PCS; principal; 2025-04-12)
PROC: 027136Z Dilation of Coronary Artery, Two Arteries with Three Drug-eluting Intraluminal Devices, Percutaneous Approach (ICD-10-PCS; 2025-04-12)
PROC: 02C03ZZ Extirpation of Matter from Coronary Artery, One Artery, Percutaneous Approach (ICD-10-PCS; 2025-04-12)
PROC: 4A033BC Measurement of Arterial Pressure, Coronary, Percutaneous Approach (ICD-10-PCS; 2025-04-12)
PROC: B241ZZ3 Ultrasonography of Multiple Coronary Arteries, Intravascular (ICD-10-PCS; 2025-04-12)
PROC: 4A023N7 Measurement of Cardiac Sampling and Pressure, Left Heart, Percutaneous Approach (ICD-10-PCS; 2025-04-12)
PROC: B211YZZ Fluoroscopy of Multiple Coronary Arteries using Other Contrast (ICD-10-PCS; 2025-04-12)
PROC: B215YZZ Fluoroscopy of Left Heart using Other Contrast (ICD-10-PCS; 2025-04-12)
DX: I21.19 ST elevation (STEMI) myocardial infarction involving other coronary artery of inferior wall (principal); I25.110 Atherosclerotic heart disease of native coronary artery with unstable angina pectoris; E78.5 Hyperlipidemia, unspecified; L40.50 Arthropathic psoriasis, unspecified; N40.0 Benign prostatic hyperplasia without lower urinary tract symptoms; R73.9 Hyperglycemia, unspecified; K21.9 Gastro-esophageal reflux disease without esophagitis; R73.03 Prediabetes; R74.01 Elevation of levels of liver transaminase levels; Z90.49 Acquired absence of other specified parts of digestive tract; Z82.49 Family history of ischemic heart disease and other diseases of the circulatory system; Z96.652 Presence of left artificial knee joint; Z79.899 Other long term (current) drug therapy
CPT/HCPCS: 36415; 71045; 80048; 80053; 80061; 80307; 81001; 83036; 83735; 84443; 84484; 85025; 85652; 86141; 87081; 92928; 92941; 92972; 92973; 92978; 92979; 93005; 93306; 93458; 93571; 96374; 96375; 99152; C1874; C1887; G0378; J2250; J2405; Q9967